=== PATIENT | female | born 1970 | race Caucasian/White ===

== ENCOUNTER 2020-11-09 09:15 | Day surgery (SDC) | payer BC ==
[~2020-11-09] VITALS: Ht 152.4 cm; Wt 64.5 kg
== END 2020-11-09 15:34 | disposition home or self-care (01) ==
LOC: ORSCSDS 09:15
PROC: 0PSC04Z Reposition Right Humeral Head with Internal Fixation Device, Open Approach (ICD-10-PCS; principal; 2020-11-09)
DX: S42.201A Unspecified fracture of upper end of right humerus, initial encounter for closed fracture (principal)
CPT/HCPCS: A9270; C1713; J0171; J0690; J1100; J1885; J2001; J2250; J2370; J2405; J2704; J3010; J7120

== ENCOUNTER → 2024-08-09 | Outpatient (CLI) | payer BC ==
[~2024-08-09] MED LIST: Percocet 5-3251 EACH PO; ZOLP5 PO
== END | disposition home or self-care (01) ==
LOC: LAB 15:12 → LAB SHORT 15:12
DX: R30.0 Dysuria (principal)
CPT/HCPCS: 87077; 87086; 87186